=== PATIENT | female | born 1945 | race Caucasian/White ===

== ENCOUNTER 2021-02-15 05:45 | Inpatient (IN) | payer OTHER ==
[~2021-02-15] VITALS: Ht 160 cm; Wt 66.2 kg
[~2021-02-15 05:45] MED LIST: AVALIDE 300-121 EACH PO; FOLIC PO; HORIZANT300 MG PO; MEDROL4 MG PO
[2021-02-16] MEDS ORDERED: TRAMADOL HCL50 MG (07:49)
[2021-02-16] MEDS ORDERED: METHOTREXA25 MG/1 M5 (07:50)
[2021-02-16] MEDS ORDERED: ALPHA LIPOIC A300 MG (07:50)
[2021-02-16] MEDS ORDERED: VITAMIN C1000 MG (07:50)
[2021-02-16] MEDS ORDERED: GABAPENTIN300 M2 (07:50)
[2021-02-16] MEDS ORDERED: CENTRUM WOMEN1 EACH (07:50)
[2021-02-16] MEDS ORDERED: ZINC50 MG (07:50)
[2021-02-16] MEDS ORDERED: VITAMIN D3125 MC1 (07:50)
== END 2021-02-17 14:00 | disposition home or self-care (01) | DRG 743 ==
LOC: CIR.AMB 05:45 → OB/GYN 10:54 → CIR.AMB 15:12 → OB/GYN 02-17 14:00
PROVIDERS: ADMIT Specialist; ATTEND Specialist
PROC: 0UT70ZZ Resection of Bilateral Fallopian Tubes, Open Approach (ICD-10-PCS; 2021-02-15)
PROC: 0DNW0ZZ Release Peritoneum, Open Approach (ICD-10-PCS; 2021-02-15)
PROC: 0TN60ZZ Release Right Ureter, Open Approach (ICD-10-PCS; 2021-02-15)
PROC: 0UT20ZZ Resection of Bilateral Ovaries, Open Approach (ICD-10-PCS; principal; 2021-02-15 07:00)
DX: D27.0 Benign neoplasm of right ovary (principal); I10 Essential (primary) hypertension; M06.9 Rheumatoid arthritis, unspecified; Z90.710 Acquired absence of both cervix and uterus